=== PATIENT | female | born 1965 | race American Indian/Alaskan Native ===

== ENCOUNTER 2017-05-02 10:56 | Outpatient (CLI) | payer MEDICAID ==
[2017-05-02 11:39] LABS: Blood Urea Nitrogen 20 mg/dL (7-17)
--- NOTE | 2017-05-02 14:32 | Magnetic Resonance Report ---
MRI LUMBAR SPINE WITHOUT AND WITH CONTRAST: 05/02/17 CLINICAL: Low back pain. TECHNIQUE: Sagittal and axial T1 and T2, sagittal STIR and sagittal and axial postcontrast T1 fat sat sequences a 1.5 Aurea magnet. 15.0 cc of Multihance was injected intravenously for the contrast portion of the exam and consent was obtained prior to the administration of the contrast. FINDINGS: Normal vertebral body height, alignment and disc spaces. Normal marrow signal and normal disc signal. The conus medullaris is normal and terminates at L1-2. No mass or enhancing lesion. No abnormal enhancement. L1-2: Intact. L2-3: Intact. L3-4: Mild circumferential disc bulge. Mild bilateral facet hypertrophy. No neural foraminal stenosis. L4-5: Mild circumferential disc bulge. Bilateral facet hypertrophy and mild bilateral neural foraminal narrowing. L5-S1: Intact. IMPRESSION: Mild degenerative disease with disc bulges and bilateral facet hypertrophy at L3-4 and L4-5. Mild bilateral neural foraminal narrowing at L4-5.
== END 2017-05-02 10:57 | disposition home or self-care (01) ==
LOC: MRI 10:56
PROVIDERS: ATTEND Internal Medicine
DX: M48.061 Spinal stenosis, lumbar region without neurogenic claudication (principal); M51.36 Other intervertebral disc degeneration, lumbar region
CPT/HCPCS: 36415; 72158; 82565; 84520; A9577

== ENCOUNTER 2019-01-11 12:51 | Outpatient (CLI) | payer MEDICAID | END 2019-01-11 12:52 | disposition home or self-care (01) | LOC: CARD 12:51 | PROVIDERS: ATTEND Internal Medicine | DX: R94.31 Abnormal electrocardiogram [ECG] [EKG] (principal); K21.9 Gastro-esophageal reflux disease without esophagitis; Z90.49 Acquired absence of other specified parts of digestive tract | CPT/HCPCS: 93005; 93010 ==

== ENCOUNTER 2019-11-21 11:17 | Outpatient (CLI) | payer MEDICARE ==
--- NOTE | 2019-11-21 12:59 | XRay Report ---
LEFT KNEE 4 VIEW(S) INDICATION / CLINICAL INFORMATION: M25.562 PAIN IN LEFT KNEE COMPARISON: None available. FINDINGS: BONES / JOINT(S): No acute fracture or subluxation. No significant arthritis. SOFT TISSUES: No significant abnormality. ADDITIONAL FINDINGS: None. Signer Name: Phan Triana MD Signed: 11/21/2019 12:55 PM Workstation Name: [id number]
== END 2019-11-21 11:18 | disposition home or self-care (01) ==
LOC: XRAY 11:17
PROVIDERS: ATTEND Orthopaedic Surgery
DX: M25.562 Pain in left knee (principal)

== ENCOUNTER 2019-12-24 10:51 | Outpatient (CLI) | payer MEDICARE ==
--- NOTE | 2019-12-24 14:28 | Magnetic Resonance Report ---
MRI LEFT KNEE WITHOUT CONTRAST INDICATION / CLINICAL INFORMATION: Left anterior knee pain x1 year. TECHNIQUE: Multiplanar, multisequence MR images were obtained. No contrast used. COMPARISON: Radiographs dated 11/21/19 FINDINGS: ACL: No significant abnormality. PCL: No significant abnormality. DISTAL QUADRICEPS TENDON: No significant abnormality. PATELLAR TENDON: No significant abnormality. MEDIAL MENISCUS: No significant abnormality. LATERAL MENISCUS: No significant abnormality. POSTEROLATERAL CORNER: No significant abnormality. MCL: No significant abnormality. LCL: No significant abnormality. DISTAL IT BAND: No significant abnormality. PATELLOFEMORAL ALIGNMENT: No significant abnormality. ARTICULAR CARTILAGE: Mild tricompartment chondrosis. JOINT SPACE: Small to moderate joint effusion with mild synovitis. Tiny popliteal cyst. No intra-osmar cular bodies. BONES: No significant bone marrow edema. No fracture. No osseous lesion. SOFT TISSUES: No significant abnormality. ADDITIONAL FINDINGS: None. IMPRESSION: 1. Mild tricompartment chondrosis with small to moderate joint effusion and mild synovitis. 2. No meniscal or ligament tear. Signer Name: Phan Triana MD Signed: 12/24/2019 2:24 PM Workstation Name: [id number]
== END 2019-12-24 10:52 | disposition home or self-care (01) ==
LOC: MRI 10:51
PROVIDERS: ATTEND Orthopaedic Surgery
DX: M71.22 Synovial cyst of popliteal space [Baker], left knee (principal); M65.9 Synovitis and tenosynovitis, unspecified; M25.462 Effusion, left knee; M25.862 Other specified joint disorders, left knee
CPT/HCPCS: 73721

== ENCOUNTER 2020-04-24 09:16 | Day surgery (SDC) | payer MEDICARE ==
[~2020-04-24 09:16] MED LIST: ceFAZolin/Water 2 GM/20 ML 2 GM/20 ML SYRINGE IV NR
[2020-04-24] MEDS ORDERED: ONDANSETRON 4 MG/2 ML INJ IV PRN (10:01)
[2020-04-24] MEDS ORDERED: ACETAMINOPHEN 500 MG TAB PO NR (10:01)
[2020-04-24] MEDS ORDERED: MAGNESIUM OXIDE 400 MG TAB PO NR (10:01)
[2020-04-24] MEDS ORDERED: HYDROmorphone 1 MG/1 ML INJ IV PRN ×2 (10:01)
--- NOTE | 2020-04-24 10:02 | Anesthesia Day of Surgery ---
Anesthesia Day of Surgery - Day of Surgery Patient Examined: Yes Patient H&P Reviewed: Yes Patient is NPO: Yes
--- NOTE | 2020-04-24 10:06 | Anesthesia Consultation ---
Anesthesia Consult and Med Hx Date of service: 04/24/20 - Airway Anesthetic Teeth Evaluation: Caps ROM Head & Neck: Adequate Mental/Hyoid Distance: Adequate Mallampati Class: Class II Intubation Access Assessment: Good - Pre-Operative Health Status ASA Pre-Surgery Classification: ASA2 Proposed Anesthetic Plan: General - Pulmonary Hx Smoking: Yes (1/2PPD SINCE 1990) Hx Asthma: No Hx Respiratory Symptoms: No COPD: No Hx Pneumonia: No Hx Sleep Apnea: No (AMAIRANI PRE SCREEN HIGH RISK) - Cardiovascular System Hx Hypertension: No Hx Coronary Artery Disease: No (had thorough workup in January. Normal LVF) Hx Heart Attack/AMI: No - Central Nervous System Hx Neuromuscular Disorder: Yes (Has discoid lupus-affects skin; last steroids five years ago) Hx Seizures: No CVA: No Hx Back Pain: Yes (limits activity along with knee pain) Hx Psychiatric Problems: Yes (anxiety/panic attacks/depression) - Gastrointestinal Hx Gastroesophageal Reflux Disease: Yes (Hiatal hernia) - Endocrine Hx Renal Disease: No Hx End Stage Renal Disease: No Hx Insulin Dependent Diabetes: No Hx Non-Insulin Dependent Diabetes: Yes Hx Hypothyroidism: No - Hematic Hx Anemia: Yes (NOT RECENT) Hx Sickle Cell Disease: Yes (was told she had trait "but it doesn't show up now") - Other Systems Hx Cancer: No Hx Obesity: Yes
[2020-04-24] MEDS ORDERED: LACTATED RINGERS 1,000 ML IV SCH (10:15)
[2020-04-24] MEDS ORDERED: HYDROmorphone 1 MG/1 ML INJ ONE (10:17)
[2020-04-24] MEDS ORDERED: LIDOCAINE MPF (2%) 20 MG/1 ML VIAL 5 ML ONE (10:18)
[2020-04-24] MEDS ORDERED: propofoL 200 MG/20 ML VIAL IV ONE (10:18)
[2020-04-24] MEDS ORDERED: MIDAZOLAM 2 MG/2 ML INJ IV NR (11:00)
[2020-04-24] MEDS ORDERED: CELECOXIB 200 MG CAP PO NR (11:00)
[2020-04-24] MEDS ORDERED: methylPREDNISolone ACETATE 40 MG/1 ML INJ ONE (11:29)
[2020-04-24] MEDS ORDERED: BUPIVACAINE/PF (0.5%) 5 MG/1 ML 30 ML VIAL INFILTRATI ONE ×2 (11:29→12:41)
[2020-04-24] MEDS ORDERED: PHENYLEPHRINE/NS 1,000 MCG/10 ML SYRINGE (OR USE) IV ONE (12:17)
[2020-04-24] MEDS ORDERED: KETOROLAC 30 MG/1 ML INJ ONE (12:51)
[2020-04-24] MEDS ORDERED: ONDANSETRON 4 MG/2 ML INJ ONE (12:51)
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
[2020-04-24] MEDS ORDERED: SODIUM CHLORIDE 0.9% IRRIG SOLN 3000 ML IR ONE (13:09)
[2020-04-24] MEDS ORDERED: methylPREDNISolone ACETATE 40 MG/1 ML INJ INTRA-ARTI ONE (13:09)
[2020-04-24] MEDS ORDERED: HYDROcodone/ACETAMINOPHEN 5-325 MG TAB PO PRN (13:48)
[2020-04-24 14:09] VITALS: BP 137/86
--- NOTE | 2020-04-24 16:04 | Post Anesthesia Evaluation ---
- Post Anesthesia Evaluation Patient Participated: Yes Airway Patent: Yes Stable Respiratory Function: Yes Nausea/Vomiting: No Temp > 96.8F: Yes Pain Manageable: Yes Adequeate Hydration: Yes Anesthesia Complications: No Block Receding Appropriately: Not Applicable Patient on Ventilator: No
== END 2020-04-24 14:55 | disposition home or self-care (01) ==
LOC: OR 09:16
PROVIDERS: ATTEND Orthopaedic Surgery
DX: M25.562 Pain in left knee (principal); S83.282A Other tear of lateral meniscus, current injury, left knee, initial encounter; F17.219 Nicotine dependence, cigarettes, with unspecified nicotine-induced disorders; K21.9 Gastro-esophageal reflux disease without esophagitis; E66.9 Obesity, unspecified; M19.90 Unspecified osteoarthritis, unspecified site; E11.22 Type 2 diabetes mellitus with diabetic chronic kidney disease; F32.9 Major depressive disorder, single episode, unspecified; F41.9 Anxiety disorder, unspecified; Z79.899 Other long term (current) drug therapy; Z98.890 Other specified postprocedural states; Z98.49 Cataract extraction status, unspecified eye; Z86.2 Personal history of diseases of the blood and blood-forming organs and certain disorders involving the immune mechanism; X58.XXXA Exposure to other specified factors, initial encounter; Y93.89 Activity, other specified; Y92.89 Other specified places as the place of occurrence of the external cause; Y99.8 Other external cause status
CPT/HCPCS: 29881; 82962; A4217; J0690; J1030; J1170; J1885; J2250; J2370; J2405; J2704; J7120

== ENCOUNTER 2021-03-16 12:05 | Emergency (ER) | payer MEDICARE ==
[2021-03-16 13:16] VITALS: BP 138/76
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
== END 2021-03-16 13:16 | disposition home or self-care (01) ==
LOC: ED 12:05
DX: S29.012A Strain of muscle and tendon of back wall of thorax, initial encounter (principal); F17.200 Nicotine dependence, unspecified, uncomplicated; E11.8 Type 2 diabetes mellitus with unspecified complications; Z90.49 Acquired absence of other specified parts of digestive tract; V87.7XXA Person injured in collision between other specified motor vehicles (traffic), initial encounter; Y93.89 Activity, other specified; Y92.89 Other specified places as the place of occurrence of the external cause; Y99.8 Other external cause status
CPT/HCPCS: 99282